=== PATIENT | female | born 1980 | race Two or more races ===

== ENCOUNTER 2021-10-11 12:16 | Inpatient (IN) | payer MEDICAID, OTHER ==
[~2021-10-11] VITALS: Ht 147.3 cm; Wt 68.9 kg
[2021-10-11] MEDS ORDERED: MORPHINE SULFATE 4 MG/ML SYR/VIAL IV ONE (12:45)
[2021-10-11] MEDS ORDERED: SODIUM CHLORIDE 0.9% 1,000 ML IV ONE ×2 (12:45)
[2021-10-11] MEDS ORDERED: ONDANSETRON HCL 4 MG/2 ML VIAL IV ONE (12:45)
[2021-10-11] MEDS ORDERED: KETOROLAC TROMETH 30 MG/ML 1ML VIAL IV ONE (13:45)
[2021-10-11 13:47] LABS: Basophils # (auto) 0.1 10 ^3/uL (0-0.2); Basophils % (auto) 0.6 % (0.0-2.0); Eosinophils # (auto) 0.1 10 ^3/uL (0-0.8); Eosinophils % (auto) 0.6 % (0.0-7.0); Hematocrit 41.3 % (36.0-46.0); Hemoglobin 13.8 g/dL (12.2-16.2); Lymphocytes % (auto) 7.6 % (10.0-50.0); Mean Corpuscular Hemoglobin 29.5 pg (28.0-32.0); Mean Corpuscular Hgb Conc. 33.4 g/dL (32.0-36.0); Mean Corpuscular Volume 88.3 fL (80.0-100.0); Monocytes # (auto) 0.3 10 ^3/uL (0-1.3); Neutrophils # (auto) 11.5 10 ^3/uL (1.6-8.6); Neutrophils % (auto) 89.2 % (37.0-80.0); Red Blood Cells 4.67 10^6/uL (4.0-5.20); Red Cell Distribution Width 13.9 % (11.8-14.3); White Blood Cell 12.9 10^3/uL (4.4-10.8)
[2021-10-11 14:39] LABS: Albumin 4.6 g/dL (3.4-5.0); Calcium 9.3 mg/dL (8.5-10.1); Potassium 3.5 mmol/L (3.5-5.1)
[2021-10-11 14:42] LABS: BUN/Creatinine Ratio 20.3; Bilirubin, Total 0.4 mg/dL (0.2-1.0); Total Protein 8.2 g/dL (6.4-8.2)
[2021-10-11] MEDS ORDERED: cefTRIAXone 1GM/50ML D5W 50 ML IV ONE (14:45)
[2021-10-11] MEDS ORDERED: HYDROmorphone HCL 2 MG/ML VL IV ONE (14:45)
[2021-10-11] MEDS ORDERED: metroNIDAZOLE 500MG/100ML 100 ML IV ONE (14:45)
[2021-10-11] MEDS ORDERED: OXcarbazepine 300 MG TAB PO ONE (15:00)
[2021-10-11] MEDS ORDERED: NITROGLYCERIN 0.4 MG SL TAB SL PRN (16:15)
[2021-10-11] MEDS ORDERED: MORPHINE SULFATE INJECTION 2 MG/ML SYRG IV PRN (16:15)
[2021-10-11] MEDS ORDERED: ALBUTEROL SULF 2.5 MG/0.5ML(0.5%) NEB SOLN NEB PRN (16:45)
[2021-10-11] MEDS: SUCRALFATE 1 GM/10 ML ORAL SUSP PO SCH ×2 (17:57→22:55)
[2021-10-11] MEDS: PANTOPRAZOLE 40 MG/10 ML VIAL INJ IV SCH (17:57)
[2021-10-11] MEDS: ONDANSETRON HCL 4 MG/2 ML VIAL IV PRN (20:06)
[2021-10-11 20:14] VITALS: BP 137/76
[2021-10-11 22:00] VITALS: BP 136/85
[2021-10-11] MEDS ORDERED: ACETAMINOPHEN 325 MG TAB PO PRN (22:30)
[2021-10-11] MEDS: metroNIDAZOLE 500MG/100ML 100 ML IV SCH (22:55)
[2021-10-11] MEDS: OXcarbazepine 300 MG TAB PO SCH (22:55)
[2021-10-11] MEDS ORDERED: OXCA600T3 PO (23:05)
[2021-10-11] MEDS ORDERED: ALBU108A5 IN (23:05)
[2021-10-11] MEDS ORDERED: CLON1TAB PO (23:05)
[2021-10-11] MEDS: HYDROcodone-ACET 5/325MG TAB PO PRN (23:51)
[2021-10-12] MEDS: ONDANSETRON HCL 4 MG/2 ML VIAL IV PRN ×4 (01:52→20:51)
[2021-10-12] MEDS: HYDROcodone-ACET 5/325MG TAB PO PRN ×3 (01:59→14:48)
[2021-10-12 05:00] VITALS: BP 138/75
[2021-10-12] MEDS: metroNIDAZOLE 500MG/100ML 100 ML IV SCH ×2 (06:24→15:00)
[2021-10-12 06:29] LABS: Basophils # (auto) 0 10 ^3/uL (0-0.2); Basophils % (auto) 0.1 % (0.0-2.0); Eosinophils # (auto) 0 10 ^3/uL (0-0.8); Eosinophils % (auto) 0.2 % (0.0-7.0); Hematocrit 33.8 % (36.0-46.0); Hemoglobin 11.8 g/dL (12.2-16.2); Lymphocytes # (auto) 1.9 10 ^3/uL (0.4-5.4); Lymphocytes % (auto) 19.8 % (10.0-50.0); Mean Corpuscular Hgb Conc. 34.9 g/dL (32.0-36.0); Mean Corpuscular Volume 88.8 fL (80.0-100.0); Monocytes # (auto) 0.6 10 ^3/uL (0-1.3); Monocytes % (auto) 6.8 % (0.0-12.0); Neutrophils # (auto) 6.9 10 ^3/uL (1.6-8.6); Neutrophils % (auto) 73.1 % (37.0-80.0); Red Blood Cells 3.81 10^6/uL (4.0-5.20); Red Cell Distribution Width 13.8 % (11.8-14.3); White Blood Cell 9.4 10^3/uL (4.4-10.8)
[2021-10-12 06:50] LABS: BUN/Creatinine Ratio 19.2; Calcium 8.3 mg/dL (8.5-10.1)
[2021-10-12 08:49] VITALS: BP 151/78
[2021-10-12] MEDS: SUCRALFATE 1 GM/10 ML ORAL SUSP PO SCH ×4 (09:00→20:51)
[2021-10-12] MEDS: PANTOPRAZOLE 40 MG/10 ML VIAL INJ IV SCH ×2 (09:08→21:42)
[2021-10-12] MEDS: levoFLOXacin 500MG 100 ML IV SCH (09:09)
[2021-10-12] MEDS: OXcarbazepine 300 MG TAB PO SCH (09:09)
[2021-10-12] MEDS ORDERED: LEVO500T31 PO (10:02)
[2021-10-12] MEDS ORDERED: METR500T PO (10:02)
[2021-10-12 13:00] VITALS: BP 152/85
[2021-10-12 17:00] VITALS: BP 179/92
[2021-10-12 18:30] VITALS: BP 150/84
[2021-10-12] MEDS: HYDROmorphone HCL 2 MG/ML VL IV PRN (20:52)
[2021-10-12] MEDS: POTASSIUM CHL 20MEQ/100ML 100 ML IV SCH (21:42)
[2021-10-12 22:00] VITALS: BP 130/83
[2021-10-12] MEDS ORDERED: OXcarbazepine 300 MG TAB PO ONE (22:15)
[2021-10-13] MEDS: metroNIDAZOLE 500MG/100ML 100 ML IV SCH ×3 (00:07→16:00)
[2021-10-13] MEDS: ONDANSETRON HCL 4 MG/2 ML VIAL IV PRN ×5 (00:59→20:59)
[2021-10-13] MEDS: HYDROmorphone HCL 2 MG/ML VL IV PRN ×5 (01:08→20:59)
[2021-10-13] MEDS: POTASSIUM CHL 20MEQ/100ML 100 ML IV SCH (01:56)
[2021-10-13 04:58] VITALS: BP 146/74
[2021-10-13] MEDS: SUCRALFATE 1 GM/10 ML ORAL SUSP PO SCH ×3 (06:01→17:00)
[2021-10-13 07:01] LABS: Basophils # (auto) 0 10 ^3/uL (0-0.2); Basophils % (auto) 0.2 % (0.0-2.0); Eosinophils # (auto) 0 10 ^3/uL (0-0.8); Eosinophils % (auto) 0.1 % (0.0-7.0); Hematocrit 32.8 % (36.0-46.0); Hemoglobin 11.5 g/dL (12.2-16.2); Lymphocytes # (auto) 1.5 10 ^3/uL (0.4-5.4); Lymphocytes % (auto) 18.3 % (10.0-50.0); Mean Corpuscular Hemoglobin 30.7 pg (28.0-32.0); Mean Corpuscular Volume 87.7 fL (80.0-100.0); Monocytes # (auto) 0.1 10 ^3/uL (0-1.3); Monocytes % (auto) 1.8 % (0.0-12.0); Neutrophils # (auto) 6.4 10 ^3/uL (1.6-8.6); Neutrophils % (auto) 79.6 % (37.0-80.0); Nucleated Red Blood Cells % 0.1 %; Red Blood Cells 3.74 10^6/uL (4.0-5.20); White Blood Cell 8.1 10^3/uL (4.4-10.8)
[2021-10-13 07:14] LABS: Calcium 7.9 mg/dL (8.5-10.1); Potassium 3.3 mmol/L (3.5-5.1)
[2021-10-13 07:17] LABS: Magnesium 2.3 mg/dL (1.6-2.6)
[2021-10-13 09:00] VITALS: BP 169/96
[2021-10-13] MEDS ORDERED: OXcarbazepine 300 MG TAB PO SCH (10:00)
[2021-10-13] MEDS: levoFLOXacin 500MG 100 ML IV SCH (10:27)
[2021-10-13] MEDS: PANTOPRAZOLE 40 MG/10 ML VIAL INJ IV SCH (10:27)
[2021-10-13 13:00] VITALS: BP 149/93
[2021-10-13] MEDS ORDERED: POTASSIUM CHL 20MEQ/100ML 100 ML IV ONE (13:45)
[2021-10-13 15:34] LABS: INR 1.06 (0.9-1.15)
[2021-10-13 17:10] VITALS: BP 145/96
[2021-10-13 22:00] VITALS: BP 140/83
[2021-10-14] MEDS: SUCRALFATE 1 GM/10 ML ORAL SUSP PO SCH ×3 (00:04→12:59)
[2021-10-14] MEDS: PANTOPRAZOLE 40 MG/10 ML VIAL INJ IV SCH ×2 (00:04→10:00)
[2021-10-14] MEDS: OXcarbazepine 300 MG TAB PO SCH ×2 (00:05→10:45)
[2021-10-14] MEDS: metroNIDAZOLE 500MG/100ML 100 ML IV SCH ×2 (00:48→08:00)
[2021-10-14] MEDS: ONDANSETRON HCL 4 MG/2 ML VIAL IV PRN ×2 (00:49→04:59)
[2021-10-14 05:00] VITALS: BP 130/67
[2021-10-14 09:00] VITALS: BP 139/84
[2021-10-14] MEDS: levoFLOXacin 500MG 100 ML IV SCH (10:00)
[2021-10-14 13:00] VITALS: BP 156/87
== END 2021-10-14 14:46 | disposition left against medical advice (07) | DRG 249 ==
LOC: EDBD 12:16 → ER 12:16 → OVERFLOW 16:04 → CENTRAL 20:25
PROVIDERS: ADMIT Internal Medicine; ATTEND Internal Medicine
DX: K52.9 Noninfective gastroenteritis and colitis, unspecified (principal); G40.209 Localization-related (focal) (partial) symptomatic epilepsy and epileptic syndromes with complex partial seizures, not intractable, without status epilepticus; E66.01 Morbid (severe) obesity due to excess calories; F12.90 Cannabis use, unspecified, uncomplicated; R60.9 Edema, unspecified; Z20.822 Contact with and (suspected) exposure to COVID-19; R11.2 Nausea with vomiting, unspecified; Z53.29 Procedure and treatment not carried out because of patient's decision for other reasons; G89.29 Other chronic pain; Z68.31 Body mass index [BMI] 31.0-31.9, adult; Z79.899 Other long term (current) drug therapy; Z82.49 Family history of ischemic heart disease and other diseases of the circulatory system; Z82.5 Family history of asthma and other chronic lower respiratory diseases; Z90.49 Acquired absence of other specified parts of digestive tract; Z88.5 Allergy status to narcotic agent
CPT/HCPCS: 36415; 71045; 74176; 80048; 80053; 82962; 83605; 83735; 84484; 84702; 85025; 85610; 87040; 95819; 96361; 96365; 96367; 96375; C9113; G0378; J0696; J1885; J1956; J2405; J3480; J3490